=== PATIENT | male | born 1965 | race Caucasian/White ===

== ENCOUNTER 2016-05-29 18:12 | Emergency (ER) | payer SELFPAY ==
[~2016-05-29] VITALS: Ht 190.5 cm; Wt 73.8 kg
[~2016-05-29 18:12] MED LIST: FOLIC ACID1 MG PO; MOTRIN800 MG PO; STRATTERA25 MG PO; THERAGRAN1 TABLET PO; VITAMIN B-1100 MG PO
[2016-05-29 19:23] LABS: ADD MIUA? NO; BILIRUBIN NEGATIVE; BLOOD NEGATIVE; COLOR COLORLESS ((YELLOW)); GLUCOSE (STRIP) NEGATIVE; KETONES NEGATIVE; LEUKOCYTES NEGATIVE; NITRITE NEGATIVE; PROTEIN (STRIP) NEGATIVE; SPECIFIC GRAVITY 1.003 (1.000-1.030); UROBILINOGEN 0.2 MG/DL (0.2-1.0)
[2016-05-29] MEDS ORDERED: LIDODERM 5% P1 PATCH TD (20:01)
[2016-05-29 20:10] VITALS: BP 139/97
== END 2016-05-29 20:11 | disposition home or self-care (01) ==
LOC: EME 18:12
PROVIDERS: Physician Assistant
DX: S13.9XXA Sprain of joints and ligaments of unspecified parts of neck, initial encounter (principal); S20.219A Contusion of unspecified front wall of thorax, initial encounter; M54.2 Cervicalgia; M54.5 Low back pain; V49.10XA Passenger injured in collision with unspecified motor vehicles in nontraffic accident, initial encounter; I10 Essential (primary) hypertension; I25.2 Old myocardial infarction; F17.200 Nicotine dependence, unspecified, uncomplicated
CPT/HCPCS: 71020; 72050; 81003; 99281; 99284

== ENCOUNTER 2016-07-13 15:56 | Emergency (ER) | payer SELFPAY ==
[~2016-07-13] VITALS: Ht 167.6 cm; Wt 75.0 kg
[~2016-07-13 15:56] MED LIST changes: +LIDODERM 5% P1 PATCH TD
[2016-07-13 16:02] VITALS: BP 144/103
[2016-07-13] MEDS ORDERED: PEN-VEE K,VEET500 MG PO (16:40)
[2016-07-13] MEDS ORDERED: NAPROSYN500 MG PO (16:40)
== END 2016-07-13 16:51 | disposition home or self-care (01) ==
LOC: EME 15:56
DX: K02.9 Dental caries, unspecified (principal); R51 Headache
CPT/HCPCS: 99281; 99282

== ENCOUNTER 2016-09-11 22:07 | Emergency (ER) | payer SELFPAY ==
[~2016-09-11] VITALS: Ht 165.1 cm; Wt 77.3 kg
[~2016-09-11 22:07] MED LIST changes: +NAPROSYN500 MG PO; +PEN-VEE K,VEET500 MG PO
[2016-09-11 22:36] VITALS: BP 117/89
== END 2016-09-11 22:37 ==
LOC: EME 22:07
DX: F10.129 Alcohol abuse with intoxication, unspecified (principal)
CPT/HCPCS: 99281; 99284